=== PATIENT | female | born 1995 | race African-American/Black ===

== ENCOUNTER 2017-02-04 10:06 | Emergency (ER) | payer SELFPAY ==
[~2017-02-04] VITALS: Ht 157.5 cm; Wt 50.0 kg
[~2017-02-04 10:06] MED LIST: CIPR0.3S RIGHT EAR; bp pill PO
[2017-02-04 10:08] VITALS: BP 132/74; PULSE 77; RESP 14; TEMP 97.8; O2SAT 99
--- NOTE | 2017-02-04 10:38 | PD ---
HPI Chief Complaint: Abdominal Pain Time Seen by Provider: 10:25 Travel History International Travel<30 days: No Contact w/Intl Traveler<30days: No Traveled to known affect area: No History of Present Illness HPI 21-year-old female presents with intermittent lower abdominal pain for the past 2 months. She states she will get constipated intermittently too. She states her menstrual cycle has been irregular almost her whole life. She states she is currently spotting right now. She states she's been once before and had an . She states she currently doesn't have a primary care physician. When the pain is present it is lower. PFSH Past Medical History Cardiovascular Problems: Yes (HX PERICARDITIS PER FAMILY) Diminished Hearing: No Immunizations Current: Yes ?: Unknown : 1 Para: 0 Miscarriage: 0 : 1 Dilation and Curettage (D&C): Yes (JUNE 07, 2013) Social History Alcohol Use: No Tobacco Use: Yes (marijuana) Substance Use: Yes (MARAJUANA ON OCCASION) Allergies-Medications (Allergen,Severity, Reaction): Coded Allergies: Penicillin (Verified Allergy, Severe, Rash, 04/02/16) Reported Meds & Prescriptions Reported Meds & Active Scripts Active Ciprodex Otic Susp (Ciprofloxacin/Dexamethasone) 7.5 Ml Susp 4 Drop RIGHT EAR Q12 7 Days Reported [bp pill] 1 Tab PO 28 DAYS Review of Systems Except as stated in HPI: all other systems reviewed are Neg Physical Exam Narrative GENERAL: Well-nourished, well-developed patient. Well-appearing SKIN: Warm and dry. HEAD: Normocephalic and atraumatic. EYES: No injection or drainage. ENT: No nasal drainage noted. NECK: Supple, trachea midline. CARDIOVASCULAR: Regular rate and rhythm RESPIRATORY: Breath sounds equal bilaterally. No accessory muscle use. GASTROINTESTINAL: Abdomen soft, non-tender, nondistended. EXTREMITIES: No edema. BACK: Nontender without obvious deformity. NEUROLOGICAL: Awake and alert. Motor and sensory grossly within normal limits. Normal speech. Data Data Last Documented VS Vital Signs Date Time Temp Pulse Resp B/P Pulse Ox O2 Delivery O2 Flow Rate FiO2 02/04/17 10:27 18 02/04/17 10:08 97.8 77 132/74 99 Orders Ed Urine Pregnancytest Poc (02/04/17 10:14) Urinalysis - C+S If Indicated (02/04/17 10:14) Labs Laboratory Tests Test 02/04/17 10:30 Urine Color YELLOW Urine Turbidity HAZY Urine pH 5.5 Urine Specific [place] 1.025 Urine Protein TRACE mg/dL Urine Glucose (UA) NEG mg/dL Urine Ketones TRACE mg/dL Urine Occult Blood LARGE Urine Nitrite NEG Urine Bilirubin NEG Urine Urobilinogen LESS THAN 2.0 MG/DL Urine Leukocyte Esterase NEG Urine RBC 38 /hpf Urine WBC 2 /hpf Urine Squamous Epithelial 6 /hpf Cells Urine Mucus MANY /lpf Microscopic Urinalysis Comment CULT NOT INDICATED MDM Medical Decision Making Medical Screen Exam Complete: Yes Emergency Medical Condition: Yes Medical Record Reviewed: Yes (pmh confirmed) Interpretation(s) beta is negative ua blood from contamination of mild vaginal bleeding without infection Differential Diagnosis , constipation, cyst, stone Narrative Course Will check point of care test, urinalysis and reevaluate. Given duration of symptoms and benign vitals and exam patient agrees to limited workup here and close outpatient testing Patient with 2 month history of intermittent abdominal pain and constipation and irregular menstrual cycle. Beta is negative here, UA without UTI, patient agrees to further testing as an outpatient with gynecology. Prior lab work and ultrasound reviewed from November, all questions answered. Patient knows that follow up is incumbent on them and to return to the emergency room immediately if new or worsening symptoms develop. Patient given strict return precautions, vitals reviewed and are normal, agrees to further workup as an outpatient. 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
[2017-02-04 11:11] LABS: BLOOD, URINE LARGE (NEG); COMMENT (UR) CULT NOT INDICATED; CULTURE IF INDICATED CULT NOT INDICATED; GLUCOSE,URINE NEG (NEG); KETONE, URINE TRACE mg/dL (NEG); MUCUS URINE MANY /lpf (OCC); NITRITE,URINE NEG (NEG); PH, URINE 5.5 (5.0-8.5); SQUAMOUS EPITHELIAL CELL URINE 6 /hpf (0-5); URINE COLOR YELLOW (YELLW/STRAW)
== END 2017-02-04 12:30 | disposition home or self-care (01) ==
LOC: NEPE 10:06
DX: K59.00 Constipation, unspecified (principal); N92.6 Irregular menstruation, unspecified
CPT/HCPCS: 81001; 84703; 99284

== ENCOUNTER 2017-05-25 10:22 | Emergency (ER) | payer SELFPAY ==
[~2017-05-25] VITALS: Ht 157.5 cm; Wt 53.0 kg
[2017-05-25 10:25] VITALS: BP 136/81; PULSE 91; RESP 15; TEMP 98.1; O2SAT 98
--- NOTE | 2017-05-25 11:16 | PD ---
HPI . "abdominal pain" Chief Complaint: Medical Clearance Time Seen by Provider: 10:45 Travel History International Travel<30 days: No Contact w/Intl Traveler<30days: No Traveled to known affect area: No History of Present Illness HPI 21 year old female with LMP 05/16/17 presents to the ED complaining of abdominal pain. Reports that the pain is in her lower abdomen and has been going on for a few weeks and worsening. Describes the pain as "poking", constant, and rates it as an 8/10. Reports similar episodes in the past and states that she is always told it is constipation. She has taken laxatives and stool softeners in the past with temporary relief of her symptoms but then they return. Her last bowel movement was a few days ago. Tried Tylenol and had minor relief. No other known alleviating factors. Aggravated by urination. Patient is also reporting pain of left upper quadrant and points to under her left breast. Reports it has also been going on for a few weeks and is constant. Unable to characterize pain. She has never had anything like this before. No known aggravating or alleviating factors. LMP was on May 16, her period ended but she recently started spotting. No vaginal discharge. No control, denies being sexually active. Patient denies any fevers, headaches, chest pain, cough, nausea, vomiting, or dysuria. Reports some shortness of breath for a few days, urinary frequency, and occasional diarrhea which is typical for her. No blood in the stool. PFSH Past Medical History Cardiovascular Problems: Yes (HX PERICARDITIS PER FAMILY) Diminished Hearing: No Immunizations Current: Yes ?: Not LMP: 05/16/17 : 1 Para: 0 Miscarriage: 0 : 1 Dilation and Curettage (D&C): Yes (JUNE 07, 2013) Social History Alcohol Use: No Tobacco Use: Yes (marijuana) Substance Use: Yes (MARAJUANA ON OCCASION) Allergies-Medications (Allergen,Severity, Reaction): Coded Allergies: Penicillin (Verified Allergy, Severe, Rash, 04/02/16) Reported Meds & Prescriptions Reported Meds & Active Scripts Active Pyridium (Phenazopyridine HCl) 100 Mg Tab 100 Mg PO Q8HR Levofloxacin 500 Mg Tablet 500 Mg PO DAILY Review of Systems General / Constitutional: No: Fever HENT: No: Headaches Cardiovascular: No: Chest Pain or Discomfort, Tachycardia, Edema Respiratory: Positive: Shortness of Breath, No: Cough, Wheezing Gastrointestinal: Positive: Diarrhea (occasional, chronic. ), Abdominal Pain, Constipation (occasional, chronic. ), No: Nausea, Vomiting Genitourinary: Positive: Frequency, No: Dysuria Musculoskeletal: No: Myalgias Physical Exam Narrative GENERAL: Awake and alert female appearing stated age in no acute distress. Seems comfortable. SKIN: Focused skin assessment warm/dry. HEAD: Atraumatic. Normocephalic. EYES: Pupils equal and round. No scleral icterus. No injection or drainage. ENT: No nasal bleeding or discharge. Mucous membranes pink and moist. NECK: Trachea midline. Neck supple. CARDIOVASCULAR: Regular rate and rhythm. No murmur appreciated. RESPIRATORY: No accessory muscle use. Clear to auscultation. Breath sounds equal bilaterally. No wheezing or crackles. GASTROINTESTINAL: Abdomen soft and nondistended. Tenderness elicited in the right lower quadrant. No guarding or rebound. GENITOURINARY: Mild left sided CVA tenderness. MUSCULOSKELETAL: No obvious deformities. No clubbing. No cyanosis. No edema. NEUROLOGICAL: Awake and alert. No obvious cranial nerve deficits. Motor grossly within normal limits. Normal speech. PSYCHIATRIC: Appropriate mood and affect; insight and judgment normal. Data Data Last Documented VS Vital Signs Date Time Temp Pulse Resp B/P Pulse Ox O2 Delivery O2 Flow Rate FiO2 05/25/17 10:25 98.1 91 15 136/81 98 Orders Urinalysis - C+S If Indicated (05/25/17 10:59) Complete Blood Count With Diff (05/25/17 10:59) Basic Metabolic Panel (Bmp) (05/25/17 10:59) Chest, Single Ap (05/25/17 ) Ed Urine Pregnancytest Poc (05/25/17 10:59) Abdomen, Kub Only (05/25/17 ) Ketorolac Inj (Toradol Inj) (05/25/17 11:30) Urine Culture (05/25/17 11:00) Levofloxacin 500 Mg Premix Inj (Levaquin (05/25/17 12:00) Morphine Inj (Morphine Inj) (05/25/17 12:00) Ondansetron Inj (Zofran Inj) (05/25/17 12:00) Labs Laboratory Tests Test 05/25/17 11:00 White Blood Count 9.2 TH/MM3 Red Blood Count 4.15 MIL/MM3 Hemoglobin 12.9 GM/DL Hematocrit 38.5 % Mean Corpuscular Volume 92.9 FL Mean Corpuscular Hemoglobin 31.0 PG Mean Corpuscular Hemoglobin 33.4 % Concent Red Cell Distribution Width 11.4 % Platelet Count 280 TH/MM3 Mean Platelet Volume 7.5 FL Neutrophils (%) (Auto) 64.2 % Lymphocytes (%) (Auto) 24.6 % Monocytes (%) (Auto) 9.5 % Eosinophils (%) (Auto) 1.3 % Basophils (%) (Auto) 0.4 % Neutrophils # (Auto) 5.9 TH/MM3 Lymphocytes # (Auto) 2.3 TH/MM3 Monocytes # (Auto) 0.9 TH/MM3 Eosinophils # (Auto) 0.1 TH/MM3 Basophils # (Auto) 0.0 TH/MM3 CBC Comment DIFF FINAL Differential Comment Urine Color YELLOW Urine Turbidity HAZY Urine pH 6.5 Urine Specific [place] 1.028 Urine Protein 30 mg/dL Urine Glucose (UA) NEG mg/dL Urine Ketones NEG mg/dL Urine Occult Blood MOD Urine Nitrite NEG Urine Bilirubin NEG Urine Urobilinogen LESS THAN 2.0 MG/DL Urine Leukocyte Esterase LARGE Urine RBC 56 /hpf Urine WBC 111 /hpf Urine Squamous Epithelial 30 /hpf Cells Urine Bacteria FEW /hpf Urine Hyaline Casts 6 /lpf Urine Mucus MANY /lpf Microscopic Urinalysis Comment CULTURE INDICATED Sodium Level 140 MEQ/L Potassium Level 3.8 MEQ/L Chloride Level 105 MEQ/L Carbon Dioxide Level 27.0 MEQ/L Anion Gap 8 MEQ/L Blood Urea Nitrogen 11 MG/DL Creatinine 0.82 MG/DL Estimat Glomerular Filtration 105 ML/MIN Rate Random Glucose 84 MG/DL Calcium Level 8.8 MG/DL [facility] Medical Decision Making Medical Screen Exam Complete: Yes Emergency Medical Condition: Yes Differential Diagnosis Differentials include constipation, pneumonia, UTI, irritable bowel syndrome, appendicitis, ovarian cyst, endometriosis, fibroids. Narrative Course Patient presented with 2 weeks of lower abdominal pain and left upper quadrant pain that is located right under her left breast. UA, urine test, CBC , BMP, chest x-ray and KUB were ordered. Patient was given IV Toradol for pain. Both the chest x-ray and KUB were unremarkable. Last 24 hours Impressions Chest X-Ray 05/25/17 0000 Signed Impressions: Service Date/Time: Thursday, May 25, 2017 11:22 - CONCLUSION: No acute disease. Brayden Rausch MD Abdomen X-Ray 05/25/17 0000 Signed Impressions: Service Date/Time: Thursday, May 25, 2017 11:17 - CONCLUSION: Examination is within normal limits. Adarsh Padilla MD UA was significant for leukocyte esterase, moderate blood, and bacteria. test was negative. All other lab results were within normal limits. 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 Was given a flyer for [facility] as she is uninsured. Patient received first dose of Levaquin in the ED and will be sent home with a prescription for Levaquin and Pyridium. 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 Follow up with primary care physician. [facility] will see you for low cost. Med/Other Pt SpecificInfo: Prescription(s) given Scripts Phenazopyridine (Pyridium)100 Mg [id number] Mg PO Q8HR #6 TAB Ref 0 Prov:Brennen Sutton MD 05/25/17 Levofloxacin 500 Mg Smcpop241 Mg PO DAILY #10 TAB Ref 0 Prov:Brennen Sutton MD 05/25/17 Disposition: 01 DISCHARGE HOME Condition: Stable Brennen Sutton MD May 25, 2017 11:16
[2017-05-25 11:20] LABS: BACTERIA, URINE FEW /hpf; BLOOD, URINE MOD (NEG); COMMENT (UR) CULTURE INDICATED; CULTURE IF INDICATED CULTURE INDICATED; GLUCOSE,URINE NEG (NEG); HYALINE CAST, URINE 6 /lpf (RARE); KETONE, URINE NEG (NEG); MUCUS URINE MANY /lpf (OCC); NITRITE,URINE NEG (NEG); PH, URINE 6.5 (5.0-8.5); SQUAMOUS EPITHELIAL CELL URINE 30 /hpf (0-5); URINE COLOR YELLOW (YELLW/STRAW)
[2017-05-25 11:24] LABS: AUTOMATED NEUTROPHIL # 5.9 TH/MM3 (1.8-7.7); BASOPHIL % 0.4 % (0.0-2.0); EOSINOPHIL # 0.1 TH/MM3 (0-0.4); EOSINOPHIL % 1.3 % (0.0-4.0); HEMATOCRIT 38.5 % (35.0-46.0); HEMO FLAGS DIFF FINAL; LYMPH % 24.6 % (9.0-44.0); LYMPHOCYTE # 2.3 TH/MM3 (1.0-4.8); MEAN CELL VOLUME 92.9 FL (80.0-100.0); MEAN CORPUSCULAR HGB CONC 33.4 % (32.0-36.0); MONO % 9.5 % (0.0-8.0); NEUT % 64.2 % (16.0-70.0); PLATELET COUNT 280 TH/MM3 (150-450); RED BLOOD COUNT 4.15 MIL/MM3 (4.00-5.30); RED CELL DISTRIBUTION WIDTH 11.4 % (11.6-17.2); WHITE BLOOD COUNT 9.2 TH/MM3 (4.0-11.0)
[2017-05-25] MEDS ORDERED: KETOROLAC TROMETHAMINE 30 MG/ML (IVP) VIAL IV PUSH ONE (11:30)
--- NOTE | 2017-05-25 11:34 | RADRPT ---
EXAM DATE/TIME: 05/25/2017 11:22 [facility] COMPARISON: No previous studies available for comparison. INDICATIONS : Short of breath. MEDICAL HISTORY : hx of bronchitis SURGICAL HISTORY : None. ENCOUNTER: Initial ACUITY: 1 day PAIN SCORE: 0/10 LOCATION: Bilateral chest FINDINGS: A single view of the chest demonstrates the lungs to be symmetrically aerated without evidence of mas s, infiltrate or effusion. The cardiomediastinal contours are unremarkable. Osseous structures are intact. CONCLUSION: No acute disease. Brayden Rausch MD on May 25, 2017 at 11:32 Board Certified Radiologist. This report was verified electronically.
[2017-05-25 11:41] LABS: POTASSIUM 3.8 MEQ/L (3.5-5.1)
--- NOTE | 2017-05-25 11:42 | RADRPT ---
EXAM DATE/TIME: 05/25/2017 11:17 [facility] COMPARISON: No previous studies available for comparison. INDICATIONS : Right lower quadrant abdominal pain. MEDICAL HISTORY : None. SURGICAL HISTORY : None. ENCOUNTER: Initial ACUITY: 2 weeks PAIN SCORE: 8/10 LOCATION: Right abdominal FINDINGS: 2 supine frontal views of the abdomen demonstrate air within small and large bowel in a nonobstructiv e pattern. No organomegaly or abnormal calcifications are seen. No abnormal mass effect is appreciate d. The visualized bones demonstrates no abnormality. CONCLUSION: Examination is within normal limits. Adarsh Padilla MD on May 25, 2017 at 11:40 Board Certified Radiologist. This report was verified electronically.
[2017-05-25] MEDS ORDERED: LEVOFLOXACIN 500 MG PREMIX INJ 100 ML IV ONE (12:00)
[2017-05-25] MEDS ORDERED: ONDANSETRON HCL 4 MG/2 ML VIAL IVP ONE (12:00)
[2017-05-25] MEDS ORDERED: MORPHINE SULFATE 4 MG/ML INJ IV ONE (12:00)
[2017-05-25] MEDS ORDERED: PHEN0.4T PO (12:24)
[2017-05-25] MEDS ORDERED: LEVO500T8 PO (12:24)
== END 2017-05-25 14:08 | disposition home or self-care (01) ==
LOC: NEPC 10:22
DX: N39.0 Urinary tract infection, site not specified (principal); R31.9 Hematuria, unspecified; Z88.0 Allergy status to penicillin
CPT/HCPCS: 71010; 74000; 80048; 81001; 84703; 85025; 87086; 96365; 96375; 99284; J1885; J1956; J2270; J2405

== ENCOUNTER 2017-08-15 04:24 | Emergency (ER) | payer SELFPAY ==
[~2017-08-15] VITALS: Ht 160 cm; Wt 52.0 kg
[~2017-08-15 04:24] MED LIST changes: -CIPR0.3S RIGHT EAR; +LEVO500T8 PO; +PHEN0.4T PO; -bp pill PO
[2017-08-15 04:25] VITALS: BP 140/76; PULSE 86; RESP 15; TEMP 98.1; O2SAT 98
[2017-08-15 04:37] VITALS: BP 126/62; PULSE 109; RESP 18; O2SAT 97
[2017-08-15 04:57] VITALS: O2SAT 100
[2017-08-15 04:58] LABS: BLOOD, URINE MOD (NEG); GLUCOSE,URINE NEG (NEG); KETONE, URINE TRACE mg/dL (NEG); MUCUS URINE MANY /lpf (OCC); NITRITE,URINE NEG (NEG); PH, URINE 5.5 (5.0-8.5); URINE COLOR YELLOW (YELLW/STRAW)
[2017-08-15 04:59] LABS: COMMENT (UR) CULTURE INDICATED; CULTURE IF INDICATED CULTURE INDICATED
[2017-08-15 05:00] LABS: AUTOMATED NEUTROPHIL # 7.8 TH/MM3 (1.8-7.7); BASOPHIL % 0.4 % (0.0-2.0); EOSINOPHIL # 0.1 TH/MM3 (0-0.4); EOSINOPHIL % 0.7 % (0.0-4.0); HEMATOCRIT 44.1 % (35.0-46.0); HEMO FLAGS DIFF FINAL; LYMPH % 25.3 % (9.0-44.0); MEAN CELL VOLUME 91.5 FL (80.0-100.0); MEAN CORPUSCULAR HEMOGLOBIN 30.4 PG (27.0-34.0); MEAN CORPUSCULAR HGB CONC 33.2 % (32.0-36.0); MONO % 7.1 % (0.0-8.0); NEUT % 66.5 % (16.0-70.0); PLATELET COUNT 301 TH/MM3 (150-450); RED BLOOD COUNT 4.82 MIL/MM3 (4.00-5.30); RED CELL DISTRIBUTION WIDTH 11.7 % (11.6-17.2); WHITE BLOOD COUNT 11.7 TH/MM3 (4.0-11.0)
[2017-08-15] MEDS ORDERED: KETOROLAC TROMETHAMINE 30 MG/ML (IVP) VIAL IV PUSH ONE (05:15)
[2017-08-15 05:19] LABS: ALKALINE PHOSPHATASE 52 U/L (45-117); TOTAL BILIRUBIN ADULT 0.8 MG/DL (0.2-1.0)
[2017-08-15 05:21] LABS: ALT (GPT) 18 U/L (10-53); ANION GAP 9 MEQ/L (5-15); AST (GOT) 28 U/L (15-37); BICARBONATE 23.5 MEQ/L (21.0-32.0); BLOOD UREA NITROGEN 14 MG/DL (7-18); CHLORIDE 105 MEQ/L (98-107); GLOMERULAR FILTRATION RATE 94 ML/MIN (>89); SODIUM (NA) 137 MEQ/L (136-145)
[2017-08-15 05:25] LABS: POTASSIUM 4.1 MEQ/L (3.5-5.1)
[2017-08-15 06:17] VITALS: BP 105/62; PULSE 61; RESP 18; O2SAT 99
[2017-08-15] MEDS ORDERED: IBUP-232 PO (06:26)
--- NOTE | 2017-08-15 06:27 | PD ---
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 Patient recently discontinued control pills after being on control pills for approximately 2 months. Patient is been off control pills were partially one month. Patient has been having intermittent lower abdominal pain 2 weeks. Patient denies any abnormal vaginal bleeding vaginal discharge or dysuria frequency urgency hematuria or flank pain. Patient rates pain as moderate to severe. Patient has had no fever or chills. Patient has had no injury or fall. Patient states that she's been seen numerous times in the past for abdominal pain and freely told that she has constipation which she has been having regular bowel movements. Patient is unable to identify exacerbating or alleviating factors. Patient has taken no medications for symptom relief. PFSH Past Medical History Narrative Medical D&C; occasional marijuana use: Nursing notes reviewed Cardiovascular Problems: Yes (HX PERICARDITIS PER FAMILY) Diminished Hearing: No Immunizations Current: Yes Tetanus Vaccination: Unknown Influenza Vaccination: No ?: Unknown LMP: 07/25/17 : 1 Para: 0 Miscarriage: 0 : 1 Dilation and Curettage (D&C): Yes (JUNE 07, 2013) Social History Alcohol Use: No Tobacco Use: No (marijuana) Substance Use: Yes ([facility] ON OCCASION) Allergies-Medications (Allergen,Severity, Reaction): Coded Allergies: penicillin G (Unverified Allergy, Severe, Rash, 08/15/17) Reported Meds & Prescriptions Reported Meds & Active Scripts Active Macrobid (Nitrofurantoin Monoh/Nitrofur Macro) 100 Mg Cap 100 Mg PO BID Ibuprofen 600 Mg Tab 600 Mg PO Q8H PRN Review of Systems Except as stated in HPI: all other systems reviewed are Neg General / Constitutional: No: Fever, Chills HENT: No: Congestion Cardiovascular: No: Chest Pain or Discomfort Respiratory: No: Shortness of Breath Gastrointestinal: Positive: Abdominal Pain, No: Nausea, Vomiting Genitourinary: No: Urgency, Frequency, Dysuria, Decreased Urinary Output, Pelvic Pain, Discharge, Vaginal Bleeding Musculoskeletal: No: Myalgias, Arthralgias Skin: No Rash Neurologic: No: Weakness Psychiatric: No: Anxiety Hematologic/Lymphatic: No: Lymph Node Enlargement Physical Exam Narrative GENERAL: Well-developed well-nourished female in no acute distress no respiratory distress SKIN: Warm and dry. HEAD: Normocephalic. EYES: No scleral icterus. No injection or drainage. NECK: Supple, trachea midline. No JVD or lymphadenopathy. CARDIOVASCULAR: Regular rate and rhythm without murmurs, gallops, or rubs. RESPIRATORY: Breath sounds equal bilaterally. No accessory muscle use. GASTROINTESTINAL: Abdomen soft, mild tenderness to direct palpation bilateral lower quadrants without guarding or rebound, nondistended. Pelvic exam normal external exam no redness induration or lesions; speculum exam scant white mucous no discharge no blood no clots no tissue cervical os closed; bimanual exam mild right sided tenderness no adnexal mass or tenderness no cervical motion tenderness no left adnexal mass or tenderness. MUSCULOSKELETAL: No cyanosis, or edema. BACK: Nontender without obvious deformity. No CVA tenderness. Data Data Last Documented VS Vital Signs Date Time Temp Pulse Resp B/P (MAP) Pulse Ox O2 Delivery O2 Flow Rate FiO2 08/15/17 08:35 08/15/17 06:17 61 18 99 Room Air 08/15/17 04:25 98.1 Orders Orders Complete Blood Count With Diff (08/15/17 04:46) Comprehensive Metabolic Panel (08/15/17 04:46) Urinalysis - C+S If Indicated (08/15/17 04:46) Ed Urine Pregnancytest Poc (08/15/17 04:46) Iv Access Insert/Monitor (08/15/17 04:46) Oxygen Administration (08/15/17 04:46) Oximetry (08/15/17 04:46) Lipase (08/15/17 04:46) Urine Culture (08/15/17 04:49) Ketorolac Inj (Toradol Inj) (08/15/17 05:15) Wet Prep Profile (08/15/17 05:33) Gc And Chlamydia Pcr (08/15/17 05:33) Ct Abd/Pel W/O Iv Contrast (08/15/17 ) Azithromycin Powd Pack (Zithromax Powd P (08/15/17 06:30) Us Pelvis Comp W Doppler (08/15/17 ) Ed Discharge Order (08/15/17 08:26) Labs Laboratory Tests Test 08/15/17 04:49 08/15/17 05:33 White Blood Count 11.7 TH/MM3 Red Blood Count 4.82 MIL/MM3 Hemoglobin 14.6 GM/DL Hematocrit 44.1 % Mean Corpuscular Volume 91.5 FL Mean Corpuscular Hemoglobin 30.4 PG Mean Corpuscular Hemoglobin Concent 33.2 % Red Cell Distribution Width 11.7 % Platelet Count 301 TH/MM3 Mean Platelet Volume 7.4 FL Neutrophils (%) (Auto) 66.5 % Lymphocytes (%) (Auto) 25.3 % Monocytes (%) (Auto) 7.1 % Eosinophils (%) (Auto) 0.7 % Basophils (%) (Auto) 0.4 % Neutrophils # (Auto) 7.8 TH/MM3 Lymphocytes # (Auto) 3.0 TH/MM3 Monocytes # (Auto) 0.8 TH/MM3 Eosinophils # (Auto) 0.1 TH/MM3 Basophils # (Auto) 0.0 TH/MM3 CBC Comment DIFF FINAL Differential Comment Urine Color YELLOW Urine Turbidity HAZY Urine pH 5.5 Urine Specific [place] 1.034 Urine Protein 30 mg/dL Urine Glucose (UA) NEG mg/dL Urine Ketones TRACE mg/dL Urine Occult Blood MOD Urine Nitrite NEG Urine Bilirubin NEG Urine Urobilinogen 2.0 MG/DL Urine Leukocyte Esterase SMALL Urine RBC 18 /hpf Urine WBC 23 /hpf Urine Mucus MANY /lpf Microscopic Urinalysis Comment CULTURE INDICATED Blood Urea Nitrogen 14 MG/DL Creatinine 0.91 MG/DL Random Glucose 82 MG/DL Total Protein 8.0 GM/DL Albumin 4.0 GM/DL Calcium Level 8.9 MG/DL Alkaline Phosphatase 52 U/L Aspartate Amino Transf (AST/SGOT) 28 U/L Alanine Aminotransferase (ALT/SGPT) 18 U/L Total Bilirubin 0.8 MG/DL Sodium Level 137 MEQ/L Potassium Level 4.1 MEQ/L Chloride Level 105 MEQ/L Carbon Dioxide Level 23.5 MEQ/L Anion Gap 9 MEQ/L Estimat Glomerular Filtration Rate 94 ML/MIN Lipase 99 U/L Clue Cells (Wet Prep) NONE SEEN Vaginal Trichomonas (Wet Prep) NONE SEEN Vaginal Yeast (Wet Prep) NONE SEEN Chlamydia trachomatis DNA (PCR) NOT DETECTED Neisseria gonorrhoeae DNA (PCR) NOT DETECTED MDM Medical Decision Making Medical Screen Exam Complete: Yes Emergency Medical Condition: Yes Medical Record Reviewed: Yes Interpretation(s) Urinalysis: Positive leukocyte Estrace positive occult blood positive red blood cells positive white blood cells no bacteria culture indicated Aimke-io-mycy hCG: Negative CBC & BMP Diagram 08/15/17 04:49 Total Protein 8.0, Albumin 4.0, Calcium Level 8.9, Alkaline Phosphatase 52, Aspartate Amino Transf (AST/SGOT) 28, Alanine Aminotransferase (ALT/SGPT) 18, Total Bilirubin 0.8 Vital Signs Date Time Temp Pulse Resp B/P (MAP) Pulse Ox O2 Delivery O2 Flow Rate FiO2 08/15/17 06:17 61 18 105/62 (76) 99 Room Air 08/15/17 04:57 100 Room Air 08/15/17 04:57 100 Room Air 08/15/17 04:37 109 18 126/62 (83) 97 Room Air 08/15/17 04:37 18 08/15/17 04:25 98.1 86 15 140/76 (97) [address] abd/pel: CONCLUSION: Ill-defined heterogeneous density soft tissue fullness in the right adnexal region. Further evaluation with pelvic sonography may be beneficial. Otherwise no acute CT findings. Adarsh Pettit MD on August 15, 2017 at 6:42 Board Certified Radiologist. This report was verified electronically. Differential Diagnosis UTI, renal colic, ovarian cyst pain, mittelschmerz, also to consider appendicitis, ovarian torsion Narrative Course IV access obtained specimens collected and sent for resulting [id number] hCG negative patient administered Toradol 30 mg IV Patient resting comfortably voicing no concerns or complaints CBC is automated differential within normal limits urinalysis shows red blood cells and occult blood as well as white blood cells no bacteria CT kidney stone protocol ordered CT abdomen and pelvis is read by reading radiologist identified to have a nonspecific right adnexal mass with recommendation for ultrasound care is now signed over at 7 AM to oncoming physician, Dr Park, for follow-up of ultrasound and patient disposition Diagnosis Primary Impression: Abdominal pain Qualified Codes: R10.30 - Lower abdominal pain, unspecified Additional Impression: Pyuria 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 Patient Instructions: General Instructions Additional Instructions: Increase fluid hydration May add MiraLAX to bowel regimen Add dietary fiber to intake 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
[2017-08-15] MEDS ORDERED: AZITHROMYCIN PWD FOR SUSP 1 GM PACKET PO ONE (06:30)
[2017-08-15] MEDS ORDERED: MACR100C2 PO (06:46)
--- NOTE | 2017-08-15 06:47 | RADRPT ---
EXAM DATE/TIME: 08/15/2017 06:22 [facility] COMPARISON: No previous studies available for comparison. INDICATIONS : Right lower pelvic pain. ORAL CONTRAST: No oral contrast ingested. RADIATION DOSE: 3.10 CTDIvol (mGy) MEDICAL HISTORY : None SURGICAL HISTORY : None. ENCOUNTER: Initial ACUITY: 1 day PAIN SCALE: 6/10 LOCATION: pelvis TECHNIQUE: Volumetric scanning of the abdomen and pelvis was performed. Using automated exposure control and ad justment of the mA and/or kV according to patient size, radiation dose was kept as low as reasonably achievable to obtain optimal diagnostic quality images. DICOM format image data is available electro nically for review and comparison. FINDINGS: LOWER LUNGS: The visualized lower lungs are clear. LIVER: Visualized portions are unremarkable. SPLEEN: Visualized portions are unremarkable. PANCREAS: Within normal limits. KIDNEYS: Normal in size and shape. There is no mass, stone, or hydronephrosis. ADRENAL GLANDS: Within normal limits. VASCULAR: There is no aortic aneurysm. BOWEL/MESENTERY: The stomach, small bowel, and colon demonstrate no acute abnormality. There is no free intraperitone al air or fluid. ABDOMINAL WALL: Within normal limits. RETROPERITONEUM: There is no lymphadenopathy. BLADDER: No wall thickening or mass. REPRODUCTIVE: Ill-defined right adnexal region fullness. INGUINAL: There is no lymphadenopathy or hernia. MUSCULOSKELETAL: Within normal limits for patient age. CONCLUSION: Ill-defined heterogeneous density soft tissue fullness in the right adnexal region. Further evaluatio n with pelvic sonography may be beneficial. Otherwise no acute CT findings. Adarsh Pettit MD on August 15, 2017 at 6:42 Board Certified Radiologist. This report was verified electronically.
[2017-08-15 07:13] LABS: CHLAMYDIA PCR NOT DETECTED (NOT DETECT); NEISSERIA PCR NOT DETECTED (NOT DETECT)
--- NOTE | 2017-08-15 08:19 | RADRPT ---
EXAM DATE/TIME: 08/15/2017 07:54 [facility] COMPARISON: CT ABDOMEN & PELVIS W/O CONTRAST, August 15, 2017, 6:22. US PELVIS,COMP,W DOPPLER, December 03, 2015 , 1:05. INDICATIONS : Right adnexal mass seen on prior CT. Pelvic pain. MEDICAL HISTORY : Pericarditis. Pelvic pain. SURGICAL HISTORY : D&C. ENCOUNTER: Initial ACUITY: 3 weeks PAIN SCORE: 5/10 LOCATION: Bilateral pelvis MEASUREMENTS: UTERUS: 9.2 x 4.0 x 5.3 cm cm ENDOMETRIAL STRIPE: 8 mm RIGHT OVARY: 5.0 x 3.5 x 2.8 cm LEFT OVARY: 3.3 x 2.1 x 1.7 cm FINDINGS: UTERUS: The myometrium has homogeneous echotexture without mass. RIGHT OVARY: There is a complex cystic structure involving the right ovary measuring 3.7 x 2.5 x 2.6 cm. The ovary is otherwise unremarkable. Normal blood flow observed. LEFT OVARY: Ovary contains no mass or significant cystic lesion.Normal blood flow observed. MISCELLANEOUS: Small amount of free fluid within the right adnexa. CONCLUSION: 1. No mass observed within the right adnexa to correlate to the finding on the CT scan. The CT findin gs may relate to unopacified loops of small bowel. Consideration could be made to CT the abdomen and pelvis following oral and IV contrast to further evaluate if clinically warranted. 2. 3.7 cm complex cyst involving the right ovary. This could relate to hemorrhagic or infected cyst. An endometrioma can have a similar appearance. A followup pelvic ultrasound following 3-4 menstrual c ycles is suggested to document resolution. 3. Small amount of free fluid within the right adnexa. Trae Wu Jr., MD on August 15, 2017 at 8:14 Board Certified Radiologist. This report was verified electronically.
--- NOTE | 2017-08-15 08:29 | PD ---
Physical Exam Date Seen by Provider: Aug 15, 2017 Time Seen by Provider: 07:00 Narrative Patient seen and evaluated by Dr. Baker, please see previous notes for further details. Awaiting ultrasound to rule out PATIENT PLACEMENT COORDINATOR issues considering CAT scan findings of fullness in the right adnexa. Laboratory Tests Test 08/15/17 04:49 08/15/17 05:33 White Blood Count 11.7 TH/MM3 (4.0-11.0) Neutrophils # (Auto) 7.8 TH/MM3 (1.8-7.7) Urine Turbidity HAZY (CLEAR) Urine Protein 30 mg/dL (NEG-TRACE) Urine Ketones TRACE mg/dL (NEG) Urine Occult Blood MOD (NEG) Urine Leukocyte Esterase SMALL (NEG) Urine RBC 18 /hpf (0-3) Urine WBC 23 /hpf (0-5) Urine Mucus MANY /lpf (OCC) Last 24 hours Impressions Pelvis Ultrasound 08/15/17 0000 Signed Impressions: Service Date/Time: Tuesday, August 15, 2017 07:54 - CONCLUSION: 1. No mass observed within the right adnexa to correlate to the finding on the CT scan. The CT findings may relate to unopacified loops of small bowel. Consideration could be made to CT the abdomen and pelvis following oral and IV contrast to further evaluate if clinically warranted. 2. 3.7 cm complex cyst involving the right ovary. This could relate to hemorrhagic or infected cyst. An endometrioma can have a similar appearance. A followup pelvic ultrasound following 3-4 menstrual cycles is suggested to document resolution. 3. Small amount of free fluid within the right adnexa. Trae Wu Jr., MD Abdomen/Pelvis CT 08/15/17 0000 Signed Impressions: Service Date/Time: Tuesday, August 15, 2017 06:22 - CONCLUSION: Ill- defined heterogeneous density soft tissue fullness in the right adnexal region. Further evaluation with pelvic sonography may be beneficial. Otherwise no acute CT findings. Adarsh Pettit MD No obvious issues were identified in the right adnexa although there is a small amount of free fluid and a cyst involving the right ovary which could contribute some pain. Pelvic exam did not show any signs of overt discharge or infections. Her wet prep and GC was negative. She does have a UTI. At this point, patient is doing well in the ER and vital signs are stable. Plan would be to release her with treatment for UTI and follow-up with SPORTS RECRUITER. Return for new issues as needed. The plan was discussed with the patient and she states understanding. Data Data Last Documented VS Vital Signs Date Time Temp Pulse Resp B/P (MAP) Pulse Ox O2 Delivery O2 Flow Rate FiO2 08/15/17 06:17 61 18 105/62 (76) 99 Room Air 08/15/17 04:25 98.1 Orders Orders Complete Blood Count With Diff (08/15/17 04:46) Comprehensive Metabolic Panel (08/15/17 04:46) Urinalysis - C+S If Indicated (08/15/17 04:46) Ed Urine Pregnancytest Poc (08/15/17 04:46) Iv Access Insert/Monitor (08/15/17 04:46) Oxygen Administration (08/15/17 04:46) Oximetry (08/15/17 04:46) Lipase (08/15/17 04:46) Urine Culture (08/15/17 04:49) Ketorolac Inj (Toradol Inj) (08/15/17 05:15) Wet Prep Profile (08/15/17 05:33) Gc And Chlamydia Pcr (08/15/17 05:33) Ct Abd/Pel W/O Iv Contrast (08/15/17 ) Azithromycin Powd Pack (Zithromax Powd P (08/15/17 06:30) Us Pelvis Comp W Doppler (08/15/17 ) Ed Discharge Order (08/15/17 08:26) Labs Laboratory Tests Test 08/15/17 04:49 08/15/17 05:33 White Blood Count 11.7 TH/MM3 Red Blood Count 4.82 MIL/MM3 Hemoglobin 14.6 GM/DL Hematocrit 44.1 % Mean Corpuscular Volume 91.5 FL Mean Corpuscular Hemoglobin 30.4 PG Mean Corpuscular Hemoglobin Concent 33.2 % Red Cell Distribution Width 11.7 % Platelet Count 301 TH/MM3 Mean Platelet Volume 7.4 FL Neutrophils (%) (Auto) 66.5 % Lymphocytes (%) (Auto) 25.3 % Monocytes (%) (Auto) 7.1 % Eosinophils (%) (Auto) 0.7 % Basophils (%) (Auto) 0.4 % Neutrophils # (Auto) 7.8 TH/MM3 Lymphocytes # (Auto) 3.0 TH/MM3 Monocytes # (Auto) 0.8 TH/MM3 Eosinophils # (Auto) 0.1 TH/MM3 Basophils # (Auto) 0.0 TH/MM3 CBC Comment DIFF FINAL Differential Comment Urine Color YELLOW Urine Turbidity HAZY Urine pH 5.5 Urine Specific [place] 1.034 Urine Protein 30 mg/dL Urine Glucose (UA) NEG mg/dL Urine Ketones TRACE mg/dL Urine Occult Blood MOD Urine Nitrite NEG Urine Bilirubin NEG Urine Urobilinogen 2.0 MG/DL Urine Leukocyte Esterase SMALL Urine RBC 18 /hpf Urine WBC 23 /hpf Urine Mucus MANY /lpf Microscopic Urinalysis Comment CULTURE INDICATED Blood Urea Nitrogen 14 MG/DL Creatinine 0.91 MG/DL Random Glucose 82 MG/DL Total Protein 8.0 GM/DL Albumin 4.0 GM/DL Calcium Level 8.9 MG/DL Alkaline Phosphatase 52 U/L Aspartate Amino Transf (AST/SGOT) 28 U/L Alanine Aminotransferase (ALT/SGPT) 18 U/L Total Bilirubin 0.8 MG/DL Sodium Level 137 MEQ/L Potassium Level 4.1 MEQ/L Chloride Level 105 MEQ/L Carbon Dioxide Level 23.5 MEQ/L Anion Gap 9 MEQ/L Estimat Glomerular Filtration Rate 94 ML/MIN Lipase 99 U/L Clue Cells (Wet Prep) NONE SEEN Vaginal Trichomonas (Wet Prep) NONE SEEN Vaginal Yeast (Wet Prep) NONE SEEN Chlamydia trachomatis DNA (PCR) NOT DETECTED Neisseria gonorrhoeae DNA (PCR) NOT DETECTED MDM Medical Record Reviewed: Yes Supervised Visit with WAYNE: No Diagnosis Primary Impression: Abdominal pain Qualified Codes: R10.30 - Lower abdominal pain, unspecified Additional Impressions: Pyuria UTI (urinary tract infection) Referrals: Custodian Supervisor call for appointment Patient Instructions: General Instructions Additional Instruction: Increase fluid hydration May add MiraLAX to bowel regimen Add dietary fiber to intake Follow-up with your primary care provider/PATIENT PLACEMENT COORDINATOR May take ibuprofen/Advil/Motrin as tolerated for pain associated with inflammation Return to the emergency department for any concerns or change in condition Scripts Nitrofurantoin Monohydrate Macrocrystals (Macrobid) 100 Mg Cap 100 MG PO BID for Infection, #6 CAP 0 Refills Prov: Eri Baker MD 08/15/17 Ibuprofen (Ibuprofen) 600 Mg Tab 600 MG PO Q8H Y for PAIN, #12 TAB 0 Refills Prov: Eri Baker MD 08/15/17 Disposition: 01 DISCHARGE HOME Condition: Stable Naun Park MD Aug 15, 2017 08:29
== END 2017-08-15 08:54 | disposition home or self-care (01) ==
LOC: NEPC 04:24
DX: R10.30 Lower abdominal pain, unspecified (principal); N39.0 Urinary tract infection, site not specified; B96.89 Other specified bacterial agents as the cause of diseases classified elsewhere
CPT/HCPCS: 74176; 76856; 80053; 81001; 83690; 84703; 85025; 87086; 87210; 87491; 87591; 93975; 96374; 99285; J1885

== ENCOUNTER 2018-01-07 15:42 | Emergency (ER) | payer SELFPAY ==
[~2018-01-07 15:42] MED LIST changes: +IBUP-232 PO; -LEVO500T8 PO; +MACR100C2 PO; -PHEN0.4T PO
[2018-01-07 15:59] VITALS: BP 139/73; PULSE 76; RESP 14; TEMP 99.1; O2SAT 100
--- NOTE | 2018-01-07 21:02 | PD ---
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 Patient states she feels as though she is on her menses but she is not. Denies any vaginal discharge or bleeding. Denies any fever or chills. Denies chance of . Patient is also here with her boyfriend who is checking in for penile discharge. PFSH Past Medical History Cardiovascular Problems: Yes (HX PERICARDITIS PER FAMILY) Diminished Hearing: No Immunizations Current: Yes ?: Unknown LMP: 12/10/2017 : 1 Para: 0 Miscarriage: 0 : 1 Dilation and Curettage (D&C): Yes (JUNE 07, 2013) Social History Alcohol Use: No Tobacco Use: No (marijuana) Substance Use: Yes (MARAJUANA ON OCCASION) Allergies-Medications (Allergen,Severity, Reaction): Coded Allergies: penicillin G (Unverified Allergy, Severe, Rash, 01/08/18) Reported Meds & Prescriptions Reported Meds & Active Scripts Active Flagyl (Metronidazole) 250 Mg Tab 250 Mg PO TID 7 Days Review of Systems Except as stated in HPI: all other systems reviewed are Neg Physical Exam Narrative Well-nourished female patient, ambulatory no acute distress. She appears nontoxic. She has even respirations. Her heart rate is regular. She moves all extremities. She has no obvious deformities. She states clearly to me. Data Data Last Documented VS Vital Signs Date Time Temp Pulse Resp B/P (MAP) Pulse Ox O2 Delivery O2 Flow Rate FiO2 01/07/18 15:59 99.1 76 14 139/73 (95) 100 Orders Orders Urinalysis - C+S If Indicated (01/07/18 16:01) Ed Urine Pregnancytest Poc (01/07/18 16:01) Gc And Chlamydia Pcr (01/07/18 16:01) MDM Medical Decision Making Medical Screen Exam Complete: Yes Emergency Medical Condition: Yes Medical Record Reviewed: Yes Differential Diagnosis UTI versus STD versus colitis versus diverticulitis versus menstrual cramps Narrative Course 22-year-old female presents to the emergency department for evaluation. Patient appears without distress. Workup is initiated. Prior to that placement , patient chooses to leave. AMA: The risks of leaving against medical advice without further evaluation treatment were discussed with the patient. These risks include cardiac dysfunction, cardiac dysrhythmia, possible heart attack, possible stroke or . The patient indicated understanding of these risks and appeared to have the capacity to make this decision. Diagnosis Primary Impression: Abdominal pain Disposition: 07 AGAINST MEDICAL ADVICE Condition: Stable Tricia Carnes Jan 07, 2018 21:02
[2018-01-08] MEDS ORDERED: METR250 PO (14:43)
== END 2018-01-07 20:10 | disposition left against medical advice (07) ==
LOC: NED 15:42
DX: R10.9 Unspecified abdominal pain (principal); Z88.0 Allergy status to penicillin; Z53.20 Procedure and treatment not carried out because of patient's decision for unspecified reasons
CPT/HCPCS: 99281; 99283

== ENCOUNTER 2018-01-08 10:25 | Emergency (ER) | payer SELFPAY ==
[~2018-01-08] VITALS: Ht 167.6 cm; Wt 60.0 kg
[2018-01-08 10:41] VITALS: BP 131/58; PULSE 82; RESP 14; TEMP 98.1; O2SAT 100
--- NOTE | 2018-01-08 13:38 | PD ---
HPI Chief Complaint: Abdominal Pain Time Seen by Provider: 13:37 Travel History International Travel<30 days: No Contact w/Intl Traveler<30days: No Traveled to known affect area: No History of Present Illness HPI 22-year-old female came to the emergency room with history of vaginal discharge and lower abdominal pain for 2 days. Her boyfriend who is here with her was treated for penile discharge for STD yesterday. Patient had a [id number] urine done in triage which was negative. She is sexually active with a boyfriend and they have unprotected sex. No vaginal bleeding. Patient is basically here to get treated for chlamydia and GC. Vital signs are stable otherwise. There was blood work ordered from triage which is pending. [facility] Past Medical History Narrative Medical List of her past medical, surgical, social and family history is reviewed from the nursing notes. Medical History: Denies Significant Hx Cardiovascular Problems: Yes (HX PERICARDITIS PER FAMILY) Diminished Hearing: No Immunizations Current: Yes ?: Unknown LMP: 12/2017 : 1 Para: 0 Miscarriage: 0 : 1 Dilation and Curettage (D&C): Yes (JUNE 07, 2013) Past Surgical History Surgical History: No Previous Surgery Social History Alcohol Use: No (occassionally ) Tobacco Use: No (marijuana) Substance Use: Yes (MARAJUANA ON OCCASION) Allergies-Medications (Allergen,Severity, Reaction): Coded Allergies: penicillin G (Unverified Allergy, Severe, Rash, 01/08/18) Comments List of allergies reviewed from the nursing note. Reported Meds & Prescriptions Reported Meds & Active Scripts Active Flagyl (Metronidazole) 250 Mg Tab 250 Mg PO TID 7 Days Narrative Medication List of her home medications reviewed from the nursing note. Review of Systems Except as stated in HPI: all other systems reviewed are Neg Genitourinary: Positive: Discharge Physical Exam Narrative GENERAL: Awake, alert, no obvious distress SKIN: Focused skin assessment warm/dry. HEAD: Atraumatic. Normocephalic. EYES: Pupils equal and round. No scleral icterus. No injection or drainage. ENT: No nasal bleeding or discharge. Mucous membranes pink and moist. NECK: Trachea midline. No JVD. CARDIOVASCULAR: Regular rate and rhythm. No murmur appreciated. RESPIRATORY: No accessory muscle use. Clear to auscultation. Breath sounds equal bilaterally. GASTROINTESTINAL: Abdomen soft, non-tender, nondistended. Hepatic and splenic margins not palpable. MUSCULOSKELETAL: No obvious deformities. No clubbing. No cyanosis. No edema. NEUROLOGICAL: Awake and alert. No obvious cranial nerve deficits. Motor grossly within normal limits. Normal speech. PSYCHIATRIC: Appropriate mood and affect; insight and judgment normal. Data Data Last Documented VS Orders Orders Complete Blood Count With Diff (01/08/18 11:01) Comprehensive Metabolic Panel (01/08/18 11:01) Urinalysis - C+S If Indicated (01/08/18 11:01) Ed Urine Pregnancytest Poc (01/08/18 11:01) Iv Access Insert/Monitor (01/08/18 11:01) Oxygen Administration (01/08/18 11:01) Oximetry (01/08/18 11:01) Lipase (01/08/18 11:01) Gc And Chlamydia Pcr (01/08/18 13:57) Metronidazole (Flagyl) (01/08/18 14:45) Azithromycin Powd Pack (Zithromax Powd P (01/08/18 14:45) Ceftriaxone Inj (Rocephin Inj) (01/08/18 14:45) Lidocaine 1% Inj (50 Ml) (Xylocaine 1% I (01/08/18 14:45) Ed Discharge Order (01/08/18 14:43) Lidocaine Pf 1% Inj (Xylocaine-Mpf 1% In (01/08/18 14:56) Labs Laboratory Tests Test 01/08/18 13:15 White Blood Count 9.8 TH/MM3 Red Blood Count 4.62 MIL/MM3 Hemoglobin 14.4 GM/DL Hematocrit 42.5 % Mean Corpuscular Volume 92.0 FL Mean Corpuscular Hemoglobin 31.2 PG Mean Corpuscular Hemoglobin Concent 33.9 % Red Cell Distribution Width 11.7 % Platelet Count 308 TH/MM3 Mean Platelet Volume 7.6 FL Neutrophils (%) (Auto) 58.4 % Lymphocytes (%) (Auto) 31.5 % Monocytes (%) (Auto) 6.5 % Eosinophils (%) (Auto) 2.7 % Basophils (%) (Auto) 0.9 % Neutrophils # (Auto) 5.7 TH/MM3 Lymphocytes # (Auto) 3.1 TH/MM3 Monocytes # (Auto) 0.6 TH/MM3 Eosinophils # (Auto) 0.3 TH/MM3 Basophils # (Auto) 0.1 TH/MM3 CBC Comment DIFF FINAL Differential Comment Urine Color YELLOW Urine Turbidity HAZY Urine pH 7.0 Urine Specific [place] 1.018 Urine Protein NEG mg/dL Urine Glucose (UA) NEG mg/dL Urine Ketones NEG mg/dL Urine Occult Blood MOD Urine Nitrite NEG Urine Bilirubin NEG Urine Urobilinogen LESS THAN 2.0 MG/DL Urine Leukocyte Esterase SMALL Urine RBC 2 /hpf Urine WBC 5 /hpf Urine Squamous Epithelial Cells 16 /hpf Urine Transitional Epithelial Cells <1 /hpf Urine Mucus FEW /lpf Microscopic Urinalysis Comment CULT NOT INDICATED Blood Urea Nitrogen 10 MG/DL Creatinine 0.81 MG/DL Random Glucose 77 MG/DL Total Protein 8.0 GM/DL Albumin 4.0 GM/DL Calcium Level 8.8 MG/DL Alkaline Phosphatase 55 U/L Aspartate Amino Transf (AST/SGOT) 26 U/L Alanine Aminotransferase (ALT/SGPT) 27 U/L Total Bilirubin 0.6 MG/DL Sodium Level 137 MEQ/L Potassium Level 3.8 MEQ/L Chloride Level 106 MEQ/L Carbon Dioxide Level 27.6 MEQ/L Anion Gap 3 MEQ/L Estimat Glomerular Filtration Rate 106 ML/MIN Lipase 111 U/L Chlamydia trachomatis DNA (PCR) NOT DETECTED Neisseria gonorrhoeae DNA (PCR) DETECTED MDM Medical Decision Making Medical Screen Exam Complete: Yes Emergency Medical Condition: Yes Medical Record Reviewed: Yes Differential Diagnosis STD, PID, service Narrative Course 2:41 PM given all her symptoms and the history with the boyfriend patient just wants to be treated. I am comfortable going ahead and just treating her with the pelvic exam. Patient understands this plan. She will go home with prescription for Flagyl in addition. Blood test results are back and within normal limits. Procedures EKG Prior to Arrival: No Diagnosis Primary Impression: PID (acute pelvic inflammatory disease) Referrals: Primary Care Physician Additional Instructions: Take the medication as per the prescription direction. Follow-up with your ASSISTANT FOOD SERVICE DIRECTOR. You should have protected sex for next 3 weeks. Your boyfriend should finish the course of his treatment as well. Med/Other Pt SpecificInfo: Prescription(s) given Scripts Metronidazole (Flagyl) 250 Mg Tab 250 MG PO TID for Infection for 7 Days, TAB 0 Refills Prov: Kody Mathur MD 01/08/18 Disposition: 01 DISCHARGE HOME Condition: Stable Kody Mathur MD Jan 08, 2018 13:38
[2018-01-08 13:41] VITALS: O2SAT 98
[2018-01-08 14:11] LABS: AUTOMATED NEUTROPHIL # 5.7 TH/MM3 (1.8-7.7); BASOPHIL # 0.1 TH/MM3 (0-0.2); BASOPHIL % 0.9 % (0.0-2.0); EOSINOPHIL # 0.3 TH/MM3 (0-0.4); EOSINOPHIL % 2.7 % (0.0-4.0); HEMATOCRIT 42.5 % (35.0-46.0); HEMOGLOBIN 14.4 GM/DL (11.6-15.3); LYMPH % 31.5 % (9.0-44.0); LYMPHOCYTE # 3.1 TH/MM3 (1.0-4.8); MEAN CORPUSCULAR HEMOGLOBIN 31.2 PG (27.0-34.0); MEAN CORPUSCULAR HGB CONC 33.9 % (32.0-36.0); MEAN PLATELET VOLUME 7.6 FL (7.0-11.0); MONO % 6.5 % (0.0-8.0); MONOCYTE # 0.6 TH/MM3 (0-0.9); NEUT % 58.4 % (16.0-70.0); PLATELET COUNT 308 TH/MM3 (150-450); RED BLOOD COUNT 4.62 MIL/MM3 (4.00-5.30); RED CELL DISTRIBUTION WIDTH 11.7 % (11.6-17.2); WHITE BLOOD COUNT 9.8 TH/MM3 (4.0-11.0)
[2018-01-08 14:21] LABS: BILIRUBIN, URINE NEG (NEG); BLOOD, URINE MOD (NEG); GLUCOSE,URINE NEG (NEG); KETONE, URINE NEG (NEG); MUCUS URINE FEW /lpf (OCC); NITRITE,URINE NEG (NEG); SQUAMOUS EPITHELIAL CELL URINE 16 /hpf (0-5); TRANSITIONAL EPI CELLS, URINE <1 /hpf; URINE COLOR YELLOW (YELLW/STRAW); URINE LEUKOCYTE ESTERASE SMALL (NEG)
[2018-01-08 14:29] LABS: ALT (GPT) 27 U/L (10-53); AST (GOT) 26 U/L (15-37); BICARBONATE 27.6 MEQ/L (21.0-32.0); BLOOD UREA NITROGEN 10 MG/DL (7-18); CALCIUM 8.8 MG/DL (8.5-10.1); CHLORIDE 106 MEQ/L (98-107); CREATININE 0.81 MG/DL (0.50-1.00); GLOMERULAR FILTRATION RATE 106 ML/MIN (>89); GLUCOSE,RANDOM 77 MG/DL (74-106); SODIUM (NA) 137 MEQ/L (136-145)
[2018-01-08 14:31] LABS: ALKALINE PHOSPHATASE 55 U/L (45-117); TOTAL BILIRUBIN ADULT 0.6 MG/DL (0.2-1.0)
[2018-01-08] MEDS ORDERED: METR250 PO (14:43)
[2018-01-08] MEDS ORDERED: AZITHROMYCIN PWD FOR SUSP 1 GM PACKET PO ONE (14:45)
[2018-01-08] MEDS ORDERED: LIDOCAINE HCL 1% 50 ML VIAL IM ONE (14:45)
[2018-01-08] MEDS ORDERED: metroNIDAZOLE 500 MG TAB PO ONE (14:45)
[2018-01-08] MEDS ORDERED: cefTRIAXone 250 MG VIAL IM ONE (14:45)
[2018-01-08] MEDS ORDERED: LIDOCAINE HCL 1% PF 30 ML VIAL ONE (14:56)
== END 2018-01-08 15:04 | disposition home or self-care (01) ==
LOC: NEPD 10:25
DX: N73.0 Acute parametritis and pelvic cellulitis (principal); F12.90 Cannabis use, unspecified, uncomplicated
CPT/HCPCS: 80053; 81001; 83690; 84703; 85025; 87491; 87591; 99283; J0696